=== PATIENT | female | born 1985 | race Caucasian/White ===

== ENCOUNTER 2023-05-07 05:48 | Day surgery (SDC) | payer BC ==
[2023-04-29 13:22] VITALS: BP 122/75
[~2023-05-07] VITALS: Ht 172.7 cm; Wt 70.5 kg
[2023-05-07 06:03] VITALS: BP 123/74
[2023-05-07] MEDS ORDERED: TYLENOL EXTRA500 MG PO (09:13)
[2023-05-07] MEDS ORDERED: PERCOCET 7.5-31 EACH PO (09:14)
[2023-05-07] MEDS ORDERED: MOTRIN IB200 MG PO (09:14)
--- NOTE | 2023-05-07 09:22 | NUR ---
05/07/23 0922 XeniaIzzy 0901- PT ARRIVES TO PACU, SUPINE POSITION, OPA IN PLACE AND 10L O2 PER MASK. PT MAINTAINING OWN AIRWAY WITH OPA. ALL MONITORS IN PLACE. LR INFUSING TO LW IV. DRESSING IN PLACE TO RIGHT BREAST. ABD SOFT, NON DISTENDED. PT NON REACTIVE ON ARRIVAL. 0903- PT STARTING TO OPEN EYES AND ATTEMPTING TO TALK WITH OPA IN PLACE, FOLLOWS COMMANDS TO REMOVE AT THIS TIME. O2 REMAINS IN PLACE AND TURNED DOWN TO 6L PER MASK. PT COUGHING INTERMITTENT AFTER REMOVING OPA. HEAD OF BED EVEATED TO SEMI ACEVEDO. 0909- PT SATS REMAIN 100% ON 6L, MOVED TO ROOM AIR AT THIS TIME. DENIES PAIN AND NAUSEA. 0914- PT SEMI ACEVEDO POSITION, RESTING AT THIS TIME. PT TOOK DEEP BREATH AND HEARD SLIGHT RHONCHI, BREATHING EVEN AND NON LABORED, O2 SATS STARTED TO DROP INTO THE MID 80'S. ENCOURAGED TO DEEP BREATH AND COUGH, PT HAS WEAK COUGH, O2 REPLACED AT 6L PER MASK AND SATS QUICKLY IMPROVED TO 100%. 0919- WAKES EASILY TO VERBAL STIMULI, CONTINUES TO DENY NAUSEA, REPORTS 1/10 PAIN TO SURGICAL SITE, TOLERABLE AND JUST CAN TELL SOMETHING HAPPENED TO THE AREA. DR ANTHONY AT BEDSIDE, BRAULIO REMAIN 100%, MOVED BACK TO ROOM AIR AT THIS TIME.
[2023-05-07 09:33] VITALS: BP 100/57
--- NOTE | 2023-05-07 09:49 | NUR ---
0930-PATIENT IS BACK TO ROOM FROM PACU ON RA. RECEIVED REPORT FROM NARESH GIPSON. PATIENT IS AWAKE. RESP EVEN AND UNLABORED. RATES PAIN 1/10 AND DENIES NAUSEA. DRESSING IS CLEAN, DRY, AND INTACT. PROVIDED PATINET WITH WATER AND PUDDING. NO OTHER NEEDS AT THIS TIME. CALL LIGHT WITHIN REACH.
--- NOTE | 2023-05-07 10:10 | NUR ---
THIS RN ANSWERS CALL LIGHT, PT STATES NEED TO URINE VOID. PT STANDS AT BEDSIDE AND REPORTS NO NAUSEA OR DIZZINESS. THIS RN STANDBY ASSIST WITH PT TO RESTROOM FOR URINE VOID OF 500 ML CLEAR/YELLOW. PT BACK TO ROOM AND GETTING DRESSED AT THIS TIME. CALL LIGHT WITHIN REACH, IN ROOM TO ASSIST.
[2023-05-07 10:25] VITALS: BP 103/60
--- NOTE | 2023-05-07 10:35 | NUR ---
IN PT ROOM FOR DISCHARGE EDUCATION, PT AND PT STATES VERBAL UNDERSTANDING AND NO FURTHER QUESTIONS AT THIS TIME. PT ESCORTED OFF OF UNIT VIA WC TO PASSENGER SIDE OF 'S VEHICLE, THIS RN STANDBY ASSIST. ALL BELONGINGS IN PT POSSESSION AT THIS TIME, PT AND PT STATE NO FURTHER NEEDS AT THIS TIME.
--- NOTE | 2023-05-07 18:06 | OR ---
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 PROCEDURE: Excision of large upper inner quadrant breast mass, 5.5 cm. ANESTHESIA: General, LMA; Tracy Kennedy CRNA and local 10 mL of 0.25% Marcaine with epinephrine. INDICATIONS: This 37-year-old white woman is a patient of Gretchen Cueto. She was noted to have a breast mass over a year ago. Previously, she had a cyst in the area confirmed by ultrasound. She underwent stereotactic breast biopsy on March 13, 2022, with ultrasound-guided core biopsy. A clip was placed as well. The pathology report showed bland breast tissue with fibroadenomatous changes and prominent stromal proliferation. Since that time, the mass seems to have increased in size she thinks. It is not particularly painful. She does have family history of breast cancer in a paternal great aunt. Clinical examination shows an obvious breast mass in the medial upper aspect on the right. There is no regional adenopathy or other abnormality. Clinically, the mass seems larger than 3.5 cm. Given its increase in size over time and despite its previous benign pathology, I have recommended complete excision as has HORACIO Horton, so as to preserve cosmesis, a circumareolar incision will be made excising the mass completely. FINDINGS: Indeed a circumareolar incision was used in the upper outer aspect on the right side. Complete excision of the mass was accomplished. It did have a smooth lala, but it was surprisingly densely adherent to the pectoralis fascia. Complete excision was accomplished with a clinically negative margin. Pectoralis muscle appeared normal otherwise. Excellent cosmesis was preserved. The operation was challenging on the basis of its large size and approach, but optimal cosmesis was maintained. DESCRIPTION OF PROCEDURE: Electronically Signed By: TRACY ANTHONY MD 05/07/23 1806 PATIENT NAME: FREDO BLACKMAN OPERATIVE REPORT DATE OF : 89 REPORT #: [id number] PHYSICIAN: TRACY ANTHONY MD PCP: GRETCHEN CUETO REPORT IS CONFIDENTIAL AND NOT TO BE RELEASED WITHOUT AUTHORIZATION [facility] [address], [place] [address] Signed The patient was brought to the operating room, given a general LMA type anesthetic. Preoperative antibiotic Ancef was given. Sequential compression device stockings were used. The right breast was prepared with a chlorhexidine solution and draped sterilely. Palpation of the mass in the upper inner aspect of the right breast was undertaken and the margins marked. The areolar-nipple complex was stimulated and the margin identified and marked as well. An incision was made along the areolar margin with #15 blade. Dissection was carried through the dermis with electrocautery. A flap was developed in the superior medial aspect allowing for separation of breast parenchyma from the underlying mass. The mass had a smooth texture to it largely. Considerable amount of effort was maintained to widely resect the mass without transecting it, which was challenging to be sure. Electrocautery was used for most of the dissection. This mass was surprisingly adherent to the pectoralis muscle more so than I expected and the pectoralis fascia was excised in continuity with the mass. The mass was ultimately extracted and passed for Pathology. Hemostasis was assured with electrocautery after irrigation with sterile water for its tumorolytic effect. The parenchyma was reapproximated with interrupted 2-0 Vicryl in layers. The dermal layer was similarly reapproximated and the skin closed with running subcuticular 3-0 Vicryl. Adebayo was applied to the biopsy cavity to assure hemostasis as well. Palpation of the breast showed it to be without major defect, certainly no bleeding and excellent cosmesis maintained. Steri-Strips were applied as was an Acticoat dressing. The patient tolerated the procedure well, was extubated and transferred to the recovery room in good condition having suffered no complication. Sponge, needle, and instrument counts reported as correct x3. Tracy Anthony MD /SHAYLEEL /[id number] cc: HORACIO Horton Copies: GRETCHEN CUETO ~ Electronically Signed By: TRACY ANTHONY MD 05/07/23 1806 PATIENT NAME: FREDO BLACKMAN OPERATIVE REPORT DATE OF : 89 REPORT #: [id number] PHYSICIAN: TRACY ANTHONY MD PCP: GRETCHEN CUETO REPORT IS CONFIDENTIAL AND NOT TO BE RELEASED WITHOUT AUTHORIZATION
--- NOTE | 2023-05-10 12:56 | PATH ---
[facility] [address] [place], [place] [address] Signed SPECIMEN(S): A RIGHT UPPER MEDIAL BREAST SPECIMEN SOURCE: A. RIGHT UPPER MEDIAL BREAST CLINICAL HISTORY: Excision of right breast mass FINAL PATHOLOGIC DIAGNOSIS: Breast, right upper medial, excision: - Benign phyllodes tumor, see synoptic report PHYLLODES OF THE BREAST: Resection SPECIMEN Procedure: Excision (less than total mastectomy) Specimen Laterality: Right TUMOR Tumor Site: Upper inner quadrant Tumor Size: Greatest dimension (Millimeters) - 43 mm Histologic Type: Phyllodes tumor, benign Stromal Cellularity: Mild Stromal Atypia: Mild Stromal Overgrowth: Absent Mitotic Rate: 1 mitoses per 10 HPFs Histologic Tumor Border: Circumscribed Malignant Heterologous Elements: Not identified MARGINS Margin Status for Phyllodes Tumor: All margins negative for phyllodes tumor Closest Margin(s) to Phyllodes Tumor: Posterior REGIONAL LYMPH NODES Regional Lymph Node Status: Not applicable (no regional lymph nodes submitted or found) Staging applies only to malignant phyllodes tumors. pT and pN categories should not be assigned for benign and borderline tumors. ADDITIONAL FINDINGS Additional Findings: Fibroepithelial proliferation COMMENT: As part of [facility]' Quality Improvement Program, this case was reviewed by another member of our pathology staff. BRP PATIENT NAME: FREDO BLACKMAN PATHOLOGY DATE OF : 89 REPORT #: [id number] PHYSICIAN: SUKHJINDER PATHOLOGY PCP: GRETCHEN CESAR REPORT IS CONFIDENTIAL AND NOT TO BE RELEASED WITHOUT AUTHORIZATION [facility] [address] [place], [place] [address] Signed MICROSCOPIC EXAMINATION: Histologic sections of all submitted blocks are examined by light microscopy. These findings, together with the gross examination, support the pathologic diagnosis. GROSS DESCRIPTION: The specimen, labeled and designated "Severe, right upper medial breast mass," is received in formalin and consists of fibroadipose tissue fragment that measure 4.5 x 4.5 x 2.3 cm. The specimen weighs 29 g. Specimen is oriented: Short stitch-superior, long stitch-lateral. Specimen is oriented as follows: Superior-blue Inferior-green Lateral-orange Medial-red Anterior-yellow Posterior-black Specimen is serially sectioned from lateral to medial in 15 slices. Sectioning through the specimen reveals white, firm, well-defined mass that measure 4.3 x 2.7 x 2.2 cm. Sectioning through the mass reveals a white, firm, whorled surface. The mass is 0.2 cm from lateral margin, 0.2 cm from medial margin, abuts posterior anterior and superior margin and it is 0.3 cm from inferior margin. Crossing to the outside surface is not grossly identified. Mass is approximately 85% of the specimen. Cold ischemic time: 2 minutes Approximate time in formalin: 14 hours Cassette Summary: (A1) lateral margin, perpendicularly sectioned (A2) mass to posterior and anterior margin. (A3) mass additional section (A4) mass to inferior margin (A5) mass, additional section (A6) mass to superior margin (A7) medial margin, perpendicularly sectioned JS (under the direct supervision of a pathologist) The Gross Description was prepared using a voice recognition system. The report was reviewed for accuracy; however, sound-alike word errors, addition and/or deletions may occur. If there is any question about this report, please contact Client Services. PATIENT NAME: FREDO BLACKMAN PATHOLOGY DATE OF : 89 REPORT #: [id number] PHYSICIAN: SUKHJINDER PATHOLOGY PCP: GRETCHEN CESAR REPORT IS CONFIDENTIAL AND NOT TO BE RELEASED WITHOUT AUTHORIZATION [facility] [address] [place], [place] [address] Signed ADDITIONAL NOTES: Immunohistochemical and/or in situ hybridization studies if performed in this case included appropriate positive controls that reacted as expected. This test was developed and its performance characteristics determined by [facility]. It has not been cleared or approved by the U.S. Food and Drug Administration. The FDA has determined that such clearance or approval is not necessary. This test is used for clinical purposes. It should not be regarded as investigational or for research. [facility] is certified under the Clinical Laboratory Improvement Amendments of 1988 (CLIA) as qualified to perform high complexity clinical laboratory testing. PERFORMING LABORATORY: Technical component was performed by [facility], [address] [place] [id number] (CLIA# [id number]). Professional interpretation was performed by [facility] - [facility] [place], [address] [place] [address] (CLIA#: [id number]). Diagnostician: Pancho Durán MD Pathologist Electronically Signed 05/10/2023 Copies: ~ PATIENT NAME: YEHUDA,FREDO RASHID PATHOLOGY DATE OF : 89 REPORT #: [id number] PHYSICIAN: SUKHJINDER PATHOLOGY PCP: GRETCHEN CESAR REPORT IS CONFIDENTIAL AND NOT TO BE RELEASED WITHOUT AUTHORIZATION
== END 2023-05-07 10:35 | disposition home or self-care (01) ==
LOC: OPS 05:48 → DS 05:48 → OPS 07:30
PROVIDERS: ATTEND Surgery
PROC: 0HBT0ZZ Excision of Right Breast, Open Approach (ICD-10-PCS; principal; 2023-05-07 07:30)
DX: D24.1 Benign neoplasm of right breast (principal)
CPT/HCPCS: 00400; J0131; J0690; J1100; J1644; J1790; J1885; J2250; J2405; J2704; J2765; J3010; J7121

== ENCOUNTER 2024-07-13 00:30 | Inpatient (IN) | payer BC ==
[~2024-07-13] VITALS: Ht 172.7 cm; Wt 83.9 kg
[~2024-07-13 00:30] MED LIST: CALCIUM CARBONATE 500 MG CHEW PO PRN; LACTATED RINGER'S 1,000 ML IV PRN; LACTATED RINGER'S 1,000 ML IV SCH; MAGNESIUM HYDROXIDE/AL HYDROX 30 ML CUP PO PRN; MOTRIN IB200 MG PO; PERCOCET 7.5-31 EACH PO; TYLENOL EXTRA500 MG PO; miSOPROStoL 25 MCG TAB PV SCH
[2024-07-13] MEDS ORDERED: OXYTOCIN/0.9 % SODIUM CHLORIDE 30 UNITS/500 ML BAG IV SCH ×2 (01:45→05:15)
[2024-07-13 01:51] LABS: HEMATOCRIT 35.7 % (35.0-50.0); HEMOGLOBIN 11.7 g/dL (12.0-18.0); MCH 25.2 (27-36); MCHC 32.7 g/dl (30-36); RBC 4.64 M/ul (4.3-5.7); RDW 15.8 (10.5-15.0)
[2024-07-13 01:58] VITALS: BP 123/79
[2024-07-13 02:24] LABS: ABO O; ANTIBODY SCREEN POSITIVE; RH NEGATIVE
[2024-07-13 03:06] LABS: ANTIBODY IDENTIFICATION ANTI-D
[2024-07-13 03:32] LABS: AMPHETAMINES, URINE NEGATIVE (NEGATIVE); BARBITURATES, URINE NEGATIVE (NEGATIVE); BENZODIAZEPINE, URINE NEGATIVE (NEGATIVE); BUPRENORPHINE, URINE NEGATIVE (NEGATIVE); CANNABINOID, URINE NEGATIVE (NEGATIVE); COCAINE, URINE NEGATIVE (NEGATIVE); ECSTASY, URINE NEGATIVE (NEGATIVE); FENTANYL, URINE NEGATIVE (NEGATIVE); METHADONE, URINE NEGATIVE (NEGATIVE); OPIATES, URINE NEGATIVE (NEGATIVE); OXYCODONE, URINE NEGATIVE (NEGATIVE); PHENCYCLIDINE, URINE NEGATIVE (NEGATIVE)
[2024-07-13] MEDS ORDERED: fentaNYL citrate 100 MCG/2 ML VIAL ONE (05:52)
[2024-07-13] MEDS ORDERED: ROPIVACAINE 0.2% 200 ML BAG ONE (05:52)
[2024-07-13] MEDS ORDERED: LACTATED RINGER'S 2,000 ML IV ONE (06:30)
[2024-07-13] MEDS ORDERED: ROPIVACAINE 0.2% 200 ML BAG EPIDURAL SCH (06:30)
[2024-07-13] MEDS ORDERED: ePHEDrine sulfate 5 MG/ML SYRINGE IV PRN (06:30)
[2024-07-13] MEDS ORDERED: LACTATED RINGER'S 500 ML IV PRN (06:30)
[2024-07-13] MEDS ORDERED: IBUPROFEN 600 MG TAB PO PRN (11:30)
[2024-07-13] MEDS ORDERED: MAGNESIUM HYDROXIDE 30 ML UDC PO PRN (11:30)
[2024-07-13] MEDS ORDERED: WITCH HAZEL/GLYCERIN 1 EA PAD TOP PRN (11:30)
[2024-07-13] MEDS ORDERED: OXYTOCIN/0.9 % SODIUM CHLORIDE 500 ML IV SCH (11:30)
[2024-07-13] MEDS ORDERED: HYDROCORTISONE ACETATE 25 MG SUPP PR PRN (11:30)
[2024-07-13] MEDS ORDERED: ACETAMINOPHEN 325 MG TAB PO PRN (11:30)
[2024-07-13] MEDS ORDERED: BENZOCAINE 60 ML AEROSOL TOP PRN (11:30)
[2024-07-13] MEDS ORDERED: LIDOCAINE 2% VISCOUS 6 ML SYR TOP ONE (11:30)
[2024-07-14] MEDS ORDERED: OXYCODONE/APAP 5/325 TAB PO ONE (07:45)
[2024-07-14] MEDS ORDERED: SENNOSIDES/DOCUSATE 1 EA TAB PO SCH (09:00)
== END 2024-07-15 17:45 | disposition home or self-care (01) | DRG 807 ==
LOC: FBC 00:30
PROVIDERS: ADMIT Obstetrics & Gynecology; ATTEND Obstetrics & Gynecology
PROC: 10E0XZZ Delivery of Products of Conception, External Approach (ICD-10-PCS; principal; 2024-07-13)
PROC: 0HQ9XZZ Repair Perineum Skin, External Approach (ICD-10-PCS; 2024-07-13)
PROC: 10907ZC Drainage of Amniotic Fluid, Therapeutic from Products of Conception, Via Natural or Artificial Opening (ICD-10-PCS; 2024-07-13)
PROC: 3E0R3BZ Introduction of Anesthetic Agent into Spinal Canal, Percutaneous Approach (ICD-10-PCS; 2024-07-13)
PROC: 00HU33Z Insertion of Infusion Device into Spinal Canal, Percutaneous Approach (ICD-10-PCS; 2024-07-13)
DX: O48.0 Post-term pregnancy (principal); Z37.0 Single live birth; Z3A.41 41 weeks gestation of pregnancy; O70.0 First degree perineal laceration during delivery; Z90.11 Acquired absence of right breast and nipple; Z98.890 Other specified postprocedural states
CPT/HCPCS: 36415; 80307; 83030; 85027; 86850; 86870; 86900; 86901; A9270; J2790; J2795; J3010; J7121